=== PATIENT | male | born 1980 | race Caucasian/White ===

== ENCOUNTER 2022-08-07 20:30 | Emergency (ER) | payer OTHER ==
[~2022-08-07] VITALS: Ht 182.9 cm; Wt 127.0 kg
--- NOTE | 2022-08-07 20:30 | NUR ---
Patient BIB [id number] for vomiting, hypotention - BP was 90/79. patient arrived with 500 NS on the LT hand. Zofran was given in the field
--- NOTE | 2022-08-07 20:33 | NUR ---
Patient is a/ox4, NAD noted. BP was 106/49 upon arrival
--- NOTE | 2022-08-07 20:39 | NUR ---
Dr Hurtado at bedside, MSE in progress
[2022-08-07] MEDS ORDERED: IV NORMAL SALINE 1000 ML BAG IV ONE (20:45)
[2022-08-07 21:10] LABS: HEMATOCRIT 45.6 % (36.7-47.1); MEAN CORPUSCULAR HEMOGLOBIN 30.2 uug (23.8-33.4); MEAN CORPUSCULAR VOLUME 90.1 fL (73.0-96.2); PLATELET COUNT (AUTO) 308 K/uL (152-348)
[2022-08-07 21:11] LABS: CARBON DIOXIDE 26 mmol/L (21-32); CHLORIDE 101 mmol/L (98-107); CREATININE 2.1 mg/dL (0.6-1.3); POTASSIUM 5.2 mmol/L (3.5-5.1); UREA NITROGEN, BLOOD 30 mg/dL (7-18)
[2022-08-07 21:17] LABS: GLUCOSE 317 mg/dL (74-106)
[2022-08-07 21:23] LABS: ALANINE AMINOTRANSFERASE 72 U/L (16-63); ALKALINE PHOSPHATASE 76 U/L (50-136); ASPARTATE AMINOTRANSFERASE 59 U/L (15-37); BILIRUBIN,DIRECT 0.1 mg/dL (0.0-0.2); BILIRUBIN,TOTAL 0.3 mg/dL (0.2-1.0); TOTAL PROTEIN, SERUM 8.2 g/dL (6.4-8.2)
[2022-08-07 22:52] LABS: *BLOOD, URINE NEGATIVE (NEGATIVE); *CLARITY,URINE CLEAR (CLEAR); *COLOR,URINE YELLOW (YELLOW); *KETONES,URINE 1+ (NEGATIVE); *UROBILINOGEN,URINE 0.2 E.U./dl (NORMAL); LEUKOCYTE ESTERASE ,URINE NEGATIVE (NEGATIVE); NITRITE, URINE NEGATIVE (NEGATIVE); PH,URINE 5.5 (5.0-8.0)
[2022-08-07 22:56] LABS: *BILIRUBIN,URIN 1+ (NEGATIVE); UGLUCOSE 1+ (NEGATIVE)
[2022-08-07 23:04] LABS: RBC,URINE 0-3 /HPF (0-3); WBC,URINE 0-3 /HPF (0-3)
[2022-08-07 23:05] LABS: BACTERIA,URINE FEW /HPF (NONE SEEN); SQUAMOUS EPITHELIAL CELL,UR FEW /HPF (NONE SEEN)
--- NOTE | 2022-08-07 23:26 | NUR ---
Patient discharged to home in stable condition. Patient is a/ox4, NAD noted. Patient is able to walk with steady gait. Written and verbal after care instructions given. Patient verbalizes understanding of instructions. Stressed follow up or return to ER for worsening s/s. Patient is accompanied by his SO
[2022-08-07 23:27] VITALS: BP 117/69
== END 2022-08-07 23:28 | disposition home or self-care (01) ==
LOC: ER 20:33
DX: E11.649 Type 2 diabetes mellitus with hypoglycemia without coma (principal); E11.22 Type 2 diabetes mellitus with diabetic chronic kidney disease; N18.9 Chronic kidney disease, unspecified; K76.0 Fatty (change of) liver, not elsewhere classified; R94.31 Abnormal electrocardiogram [ECG] [EKG]; R03.0 Elevated blood-pressure reading, without diagnosis of hypertension; Z88.5 Allergy status to narcotic agent
CPT/HCPCS: 99285; 96360; 80076; 80048; 81001; 83735; 85025; 84484; 36415; 93005; J7040; A4663

== ENCOUNTER 2022-12-29 21:33 | Emergency (ER) | payer MEDICAID, OTHER ==
[~2022-12-29] VITALS: Ht 1828.8 cm; Wt 115.7 kg
--- NOTE | 2022-12-29 22:20 | NUR ---
Called patient to be triaged but was not present in the waiting room or outside of ER.
[2022-12-29] MEDS ORDERED: GLIP10TA11 PO (22:34)
[2022-12-29] MEDS ORDERED: METF-442 PO (22:34)
--- NOTE | 2022-12-29 22:35 | NUR ---
After being triaged, patient was placed back in the waiting room due to no beds avaialble in the ER.
--- NOTE | 2022-12-29 23:48 | NUR ---
Patient placed in room 2B at this time.
--- NOTE | 2022-12-30 00:21 | NUR ---
Dr Madrigal at bedside MSE in progress
[2022-12-30] MEDS ORDERED: ONDANSETRON 4 MG/2 ML VIAL IV ONE (00:30)
[2022-12-30] MEDS ORDERED: FENTANYL CITRATE 100 MCG/2 ML AMPUL IV ONE (00:30)
[2022-12-30] MEDS ORDERED: IV NS 1000 ML 1,000 ML IV ONE (00:30)
[2022-12-30] MEDS ORDERED: ONDANSETRON 4 MG/2 ML VIAL ONE (00:36)
[2022-12-30] MEDS ORDERED: FENTANYL CITRATE 100 MCG/2 ML AMPUL ONE (00:38)
[2022-12-30] MEDS ORDERED: CEFOTAXIME SODIUM 500 MG VIAL IV ONE (00:45)
--- NOTE | 2022-12-30 01:00 | NUR ---
Claforan 2,000mg not available in [facility] notified
[2022-12-30 01:01] LABS: HEMATOCRIT 40.9 % (36.7-47.1); MEAN CORPUSCULAR HEMOGLOBIN 30.1 uug (23.8-33.4); MEAN CORPUSCULAR VOLUME 90.7 fL (73.0-96.2); PLATELET COUNT (AUTO) 249 K/uL (152-348)
[2022-12-30 01:07] LABS: CREATININE 0.9 mg/dL (0.6-1.3); POTASSIUM 3.7 mmol/L (3.5-5.1)
[2022-12-30 01:11] LABS: BILIRUBIN,DIRECT 0.1 mg/dL (0.0-0.2); BILIRUBIN,TOTAL 0.4 mg/dL (0.2-1.0); TOTAL PROTEIN, SERUM 8.8 g/dL (6.4-8.2)
[2022-12-30] MEDS ORDERED: IOHEXOL 300MG/ML 100 ML INFUS..BTL ONE (01:33)
[2022-12-30] MEDS ORDERED: IV NORMAL SALINE 250 ML IV ONE (01:33)
[2022-12-30] MEDS ORDERED: SWABABLE VALVE TRANSFER SET EA MC ONE (01:33)
[2022-12-30] MEDS ORDERED: HYDROMORPHONE 1 MG/1 ML DISP.SYRIN IV ONE (03:15)
[2022-12-30] MEDS ORDERED: HYDROMORPHONE 1 MG/1 ML DISP.SYRIN ONE (03:16)
[2022-12-30] MEDS ORDERED: HYDR-4209 PO ×2 (06:33→06:46)
[2022-12-30] MEDS ORDERED: ONDA4TAB11 PO (06:33)
[2022-12-30] MEDS ORDERED: AMOX-430 PO ×2 (06:33→06:46)
[2022-12-30] MEDS ORDERED: IBUP-1958 PO (06:33)
--- NOTE | 2022-12-30 06:58 | NUR ---
Patient discharged to home in stable condition. Written and verbal after care instructions given. Patient verbalizes understanding of instructions. Stressed follow up or return to ER for worsening s/s. Patient is a/ox4, NAD noted. Patient is accompanied by his
[2022-12-30 07:45] VITALS: BP 128/68
== END 2022-12-30 08:01 | disposition home or self-care (01) ==
LOC: ER 21:35
DX: R09.81 Nasal congestion (principal); R51.9 Headache, unspecified; H04.69 Other changes of lacrimal passages; F31.9 Bipolar disorder, unspecified; Z88.5 Allergy status to narcotic agent; E11.9 Type 2 diabetes mellitus without complications; Z79.84 Long term (current) use of oral hypoglycemic drugs
CPT/HCPCS: 99285; 70470; 96374; 96375; 96361; 80076; 80048; 85025; 36415; 70487; J0698; J2405; Q9967; J3010; J1170; J7040; A4663

== ENCOUNTER 2023-09-12 10:25 | Emergency (ER) | payer OTHER ==
[~2023-09-12] VITALS: Ht 182.9 cm; Wt 110.2 kg
[~2023-09-12 10:25] MED LIST: AMOX-430 PO; GLIP10TA11 PO; HYDR-4209 PO; IBUP-1958 PO; METF-442 PO; ONDA4TAB11 PO
[2023-09-12] MEDS ORDERED: SEMA0.25 SQ (10:46)
[2023-09-12 11:53] LABS: ALBUMIN 3.9 g/dL (3.4-5.0); BILIRUBIN,DIRECT 0.1 mg/dL (0.0-0.2); BILIRUBIN,TOTAL 0.2 mg/dL (0.2-1.0); CREATININE 0.8 mg/dL (0.6-1.3); POTASSIUM 4.7 mmol/L (3.5-5.1)
[2023-09-12 11:54] LABS: BASOPHILS % (AUTO) 0.8 % (0.0-2.0); EOSINOPHILS # (AUTO) 0.2 K/uL (0.0-0.7); EOSINOPHILS % (AUTO) 3.9 % (0.0-7.0); HEMATOCRIT 42.6 % (36.7-47.1); HEMOGLOBIN 14.5 g/dL (12.5-16.3); LYMPHOCYTES # (AUTO) 2.5 K/uL (0.8-4.8); LYMPHOCYTES % (AUTO) 47.1 % (20.5-51.5); MEAN CORPUSCULAR HGB CONC 34 g/dL (32.5-36.3); MONOCYTES # (AUTO) 0.3 K/uL (0.1-1.30); MONOCYTES % (AUTO) 5.9 % (0.0-11.0); NEUTROPHILS # (AUTO) 2.3 K/uL (1.8-8.9); NEUTROPHILS % (AUTO) 42.3 % (38.5-71.5); PLATELET COUNT (AUTO) 243 K/uL (152-348); RED BLOOD CELL COUNT(AUTO) 4.68 MIL/uL (4.06-5.63); RED CELL DISTRIBUTION WIDTH 12.8 % (12.1-16.2); WHITE BLOOD COUNT (AUTO) 5.3 K/uL (3.6-10.2)
[2023-09-12 12:11] LABS: DIFFERENTIAL COMMENT N
[2023-09-12] MEDS ORDERED: MAG HYDROX/AL HYDROX/SIMETH 30 ML LIQUID UDC PO ONE (12:30)
[2023-09-12] MEDS ORDERED: LIDOCAINE VISCUS 2% 15 ML UDC MM ONE (12:30)
[2023-09-12] MEDS ORDERED: LIDOCAINE VISCUS 2% 15 ML UDC ONE (13:13)
[2023-09-12] MEDS ORDERED: MAGNESIUM HYDROXIDE 30 ML LIQUID UDC ONE (13:13)
[2023-09-12] MEDS ORDERED: FAMO20TA8 PO (14:02)
[2023-09-12 14:11] VITALS: BP 112/80; TEMP 98; O2SAT 99
== END 2023-09-12 14:20 | disposition home or self-care (01) ==
LOC: ER 10:25
DX: K27.9 Peptic ulcer, site unspecified, unspecified as acute or chronic, without hemorrhage or perforation (principal); K29.70 Gastritis, unspecified, without bleeding; E11.22 Type 2 diabetes mellitus with diabetic chronic kidney disease; N18.9 Chronic kidney disease, unspecified; F31.9 Bipolar disorder, unspecified; Z79.899 Other long term (current) drug therapy; Z88.5 Allergy status to narcotic agent
CPT/HCPCS: 36415; 74021; 83690; 85025; A4606; A4663